=== PATIENT | male | born 2000 | race Caucasian/White ===

== ENCOUNTER 2023-10-08 15:44 | Outpatient (OUT) | payer SELFPAY ==
--- NOTE | 2023-10-08 15:52 | XR_ITS ---
The [address] [address] Patient Name: MINA YODER MRN: [id number] date: 2000 Sex: M Assigned Patient Location: RAD Current Patient Location: RAD Accession/Order Number: [id number] Exam Date: 10/08/2023 16:00 Report Date: 10/08/2023 16:26 At the request of: PITA OGLESBY Procedure: XR finger LT min 2V Exam: Radiographs: XR finger LT min 2V Reason for exam: Injury To Thumb Comparison: None XR/XR finger LT min 2V IMPRESSION: Acute nondisplaced fracture through the tuft of the first distal phalanx. Remainder of the left thumb radiographs is unremarkable. Electronically authenticated by: MARILYN RIVAS Date: 10/08/2023 16:26
== END 2023-10-08 15:45 | disposition home or self-care (01) ==
PROVIDERS: PCP Family Medicine; Visit Provider Nurse Practitioner Family
DX: M79.645 Pain in left finger(s) (principal); S62.525A Nondisplaced fracture of distal phalanx of left thumb, initial encounter for closed fracture
CPT/HCPCS: 73140